=== PATIENT | female | born 2000 | race Caucasian/White ===

== ENCOUNTER 2024-08-04 11:04 | Emergency (ER) | payer SELFPAY ==
[2024-08-04 11:14] VITALS: BP 116/75; PULSE 74; RESP 18; TEMP 98.6; BMI 21.2
[2024-08-04] MEDS ORDERED: KETOROLAC TROMETHAMINE 30 MG/1 ML VIAL ONE (12:03)
[2024-08-04] MEDS: KETOROLAC TROMETHAMINE 30 MG/1 ML VIAL IM ONE (12:11)
[2024-08-04 14:55] LABS: HIV INTERPRETATION NEGATIVE (NEGATIVE)
== END 2024-08-04 13:12 | disposition home or self-care (01) ==
LOC: JERFT 11:04
PROC: 3E0133Z Introduction of Anti-inflammatory into Subcutaneous Tissue, Percutaneous Approach (ICD-10-PCS; principal; 2024-08-04)
DX: M25.561 Pain in right knee (principal); R21 Rash and other nonspecific skin eruption; M79.661 Pain in right lower leg
CPT/HCPCS: 36415; 73562-TC-RT-FY; 86803; 87389; 93971-TC; 99285-25